=== PATIENT | female | born 1995 | race Two or more races ===

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

== ENCOUNTER 2019-03-16 16:12 | Emergency (ER) | payer OTHER ==
[2019-03-16 16:43] LABS: BASOPHILS % (AUTO) 0.2 %; EOSINOPHILS % (AUTO) 2.2 %; HGB - HEMOGLOBIN 14.4 g/dL (12.0-16.0); MEAN CORPUSCULAR HEMOGLOBIN 32.1 pg (27.0-31.0); MEAN CORPUSCULAR HGB CONC 35.1 g/dL (32.0-36.0); MEAN CORPUSCULAR VOLUME 91.5 fL (81.0-99.0); MEAN PLATELET VOLUME 10.3 fL (7.9-10.8); MONOCYTES % (AUTO) 8.4 %; NEUTROPHILS % (AUTO) 60.5 %; PLT - PLATELET COUNT 133 10^3/uL (130-450); RED BLOOD COUNT 4.48 10^6/uL (4.20-5.40); RED CELL DISTRIBUTION WIDTH 11.8 % (12.0-15.0)
[2019-03-16 16:46] LABS: ABNORMAL LYMPHS % (MANUAL) 0 %
[2019-03-16 16:48] LABS: ALBUMIN 4.8 g/dL (3.2-5.5); ALBUMIN/GLOBULIN RATIO 1.2 (1.0-2.2); BILIRUBIN,TOTAL 0.5 mg/dL (0.2-1.0); CALCIUM 9.2 mg/dL (8.5-10.3); CREATININE 0.5 mg/dL (0.4-1.0); TOTAL PROTEIN 8.9 g/dL (6.7-8.2)
[2019-03-16] MEDS ORDERED: KETOROLAC 30 MG/ML VIAL IVP STA (16:48)
[2019-03-16] MEDS ORDERED: ONDANSETRON 4 MG/2 ML VIAL IVP STA (16:48)
[2019-03-16] MEDS ORDERED: SODIUM CHLORIDE 0.9% 1,000 ML IV ONE (16:48)
--- NOTE | 2019-03-16 16:50 | ED Physician Documentation ---
PD HPI ABD PAIN - Stated complaint Stated Complaint: FLU SYMPTOMS - Chief complaint Chief Complaint: Abd Pain - History obtained from History obtained from: Patient (Previously healthy 23-year-old woman has been sick for 4 days with abdominal cramps, body wide pain, vomiting and diarrhea as well as chills and fever at home. Sent from an urgent care for concern for potential appendicitis.) Review of Systems Constitutional: reports: Fever, Chills Nose: reports: Rhinorrhea / runny nose Cardiac: denies: Palpitations Respiratory: denies: Cough GI: reports: Abdominal Pain, Nausea, Vomiting, Diarrhea PD PAST MEDICAL HISTORY - Past Medical History Cardiovascular: None Respiratory: None Endocrine/Autoimmune: None GI: None : None HEENT: None Psych: Depression Musculoskeletal: None Derm: None - Past Surgical History Past Surgical History: No - Present Medications Home Medications: Ambulatory Orders Medication Instructions Recorded Confirmed Moxifloxacin HCl 400 mg PO DAILY #6 tablet 02/24/16 Dicyclomine [Bentyl] 20 mg PO QID PRN #15 capsule 03/16/19 Loperamide [Imodium] 2 mg PO QID PRN #10 capsule 03/16/19 Ondansetron Odt [Zofran] 4 mg TL Q6H PRN #10 tablet 03/16/19 - Allergies Allergies/Adverse Reactions: Allergies Allergy/AdvReac Type Severity Reaction Status Date / Time No Known Drug Allergies Allergy Verified 03/16/19 16:20 - Social History Does the pt smoke?: No Smoking Status: Never smoker Does the pt drink ETOH?: No Does the pt have substance abuse?: No - Immunizations Immunizations are current?: Yes - POLST Patient has POLST: No PD ED PE NORMAL - Vitals Vital signs reviewed: Yes - General General: Alert and oriented X 3, No acute distress - HEENT HEENT: PERRL, Pharynx benign - Neck Neck: Supple, no meningeal sign, No bony TTP - Cardiac Cardiac: RRR, No murmur - Respiratory Respiratory: No respiratory distress, Clear bilaterally - Abdomen Abdomen: Normal bowel sounds, Soft, Non tender - Back Back: No CVA TTP, No spinal TTP - Derm Derm: Normal color, Warm and dry - Extremities Extremities: No edema, No calf tenderness / cord - Neuro Neuro: Alert and oriented X 3, Normal speech Results - Vitals Vitals: Vital Signs - 24 hr 03/16/19 03/16/19 16:18 18:31 Temperature 36.9 C Heart Rate 77 66 Respiratory 16 Rate Blood Pressure 124/77 113/69 O2 Saturation 99 100 Oxygen O2 Source Room air - Labs Labs: Laboratory Tests 03/16/19 03/16/19 03/16/19 16:31 16:31 17:17 WBC 6.0 RBC 4.48 Hgb 14.4 Hct 41.0 MCV 91.5 MCH 32.1 H MCHC 35.1 RDW 11.8 L Plt Count 133 MPV 10.3 Neut # (Auto) Not Reportable Lymph # (Auto) Not Reportable Rich # (Auto) Not Reportable Eos # (Auto) Not Reportable Baso # (Auto) Not Reportable Absolute Nucleated RBC Not Reportable Total Counted 100 Band Neuts % (Manual) 9 Reactive Lymphs % (Man) 3 Abnorm Lymph % (Manual) 0 Nucleated RBC % Not Reportable Neutrophils # (Manual) 3.8 Lymphocytes # (Manual) 1.8 Monocytes # (Manual) 0.4 Eosinophils # (Manual) 0.0 Basophils # (Manual) 0.0 Differential Comment MANUAL DIFFERENTIAL Platelet Estimate NORMAL (130-450,000) Platelet Morphology NORMAL APPEARANCE RBC Morph Micro Appear NORMAL APPEARANCE Sodium 133 L Potassium 3.5 Chloride 96 L Carbon Dioxide 23 Anion Gap 14.0 H BUN 12 Creatinine 0.5 Estimated GFR (MDRD) 156 Glucose 97 Calcium 9.2 Total Bilirubin 0.5 AST 40 ALT 25 Alkaline Phosphatase 77 Total Protein 8.9 H Albumin 4.8 Globulin 4.1 Albumin/Globulin Ratio 1.2 Lipase 50 Urine Color YELLOW Urine Clarity CLEAR Urine pH 6.5 Ur Specific [place] 1.020 Urine Protein 30 H Urine Glucose (UA) NEGATIVE Urine Ketones >=80 H Urine Occult Blood NEGATIVE Urine Nitrite NEGATIVE Urine Bilirubin NEGATIVE Urine Urobilinogen 1 (NORMAL) Ur Leukocyte Esterase NEGATIVE Urine RBC 0-5 Urine WBC 4-5 Ur Squamous Epith Cells MOD Squamous H Urine Bacteria Moderate H Urine Mucus Marked Strands Ur Microscopic Review INDICATED Urine Culture Comments NOT INDICATED Urine HCG, Qual 03/16/19 17:17 WBC RBC Hgb Hct MCV MCH MCHC RDW Plt Count MPV Neut # (Auto) Lymph # (Auto) Rich # (Auto) Eos # (Auto) Baso # (Auto) Absolute Nucleated RBC Total Counted Band Neuts % (Manual) Reactive Lymphs % (Man) Abnorm Lymph % (Manual) Nucleated RBC % Neutrophils # (Manual) Lymphocytes # (Manual) Monocytes # (Manual) Eosinophils # (Manual) Basophils # (Manual) Differential Comment Platelet Estimate Platelet Morphology RBC Morph Micro Appear Sodium Potassium Chloride Carbon Dioxide Anion Gap BUN Creatinine Estimated GFR (MDRD) Glucose Calcium Total Bilirubin AST ALT Alkaline Phosphatase Total Protein Albumin Globulin Albumin/Globulin Ratio Lipase Urine Color Urine Clarity Urine pH Ur Specific [place] 1.020 Urine Protein Urine Glucose (UA) Urine Ketones Urine Occult Blood Urine Nitrite Urine Bilirubin Urine Urobilinogen Ur Leukocyte Esterase Urine RBC Urine WBC Ur Squamous Epith Cells Urine Bacteria Urine Mucus Ur Microscopic Review Urine Culture Comments Urine HCG, Qual NEGATIVE PD MEDICAL DECISION MAKING - ED course ED course: This is a 23-year-old woman who presents with a flulike illness and gastroenteritis, some concern from the sending facility for appendicitis, however in my opinion this is clinically not likely given the lack of focal right lower quadrant pain or tenderness. Further corroborated by the white count of 6. On repeat evaluation after some IV Toradol, Zofran and fluids she felt much better, passed an oral challenge. Remained nontender on abd exam. Departure - Departure Disposition: 01 Home, Self Care Clinical Impression: Gastroenteritis Condition: Good Record reviewed to determine appropriate education?: Yes Instructions: ED Gastroenteritis Viral Prescriptions: Dicyclomine [Bentyl] 20 mg PO QID PRN #15 capsule PRN Reason: Abdominal Pain Loperamide [Imodium] 2 mg PO QID PRN #10 capsule PRN Reason: Diarrhea Ondansetron Odt [Zofran] 4 mg TL Q6H PRN #10 tablet PRN Reason: Nausea / Vomiting Comments: Suspect will be better in the next 24 hours, return in 24 hours if not or anytime if worse.
[2019-03-16 17:32] LABS: BAND NEUTROPHILS % (MANUAL) 9 %; LYMPHOCYTES # (MANUAL) 1.8 10^3/uL (1.5-3.5); LYMPHOCYTES % (MANUAL) 27 %; MONOCYTES # (MANUAL) 0.4 10^3/uL (0.0-1.0)
[2019-03-16 17:34] LABS: PLATELET ESTIMATE, MANUAL NORMAL (130-450,000) (NORMAL); PLATELET MORPHOLOGY NORMAL APPEARANCE (NORMAL); RBC MORPHOLOGY (MULTIPLE) NORMAL APPEARANCE (NORMAL)
[2019-03-16 17:35] LABS: DIFFERENTIAL COMMENT MANUAL DIFFERENTIAL
[2019-03-16 18:12] LABS: BILIRUBIN,URINE NEGATIVE (NEGATIVE); GLUCOSE, URINE (UA) NEGATIVE (NEGATIVE); KETONES,URINE (UA) >=80 mg/dL (NEGATIVE); LEUKOCYTE ESTERASE, URINE NEGATIVE (NEGATIVE); NITRITE,URINE NEGATIVE (NEGATIVE); OCCULT BLOOD,URINE NEGATIVE (NEGATIVE); PH,URINE 6.5 PH (5.0-7.5); PROTEIN,URINE 30 mg/dL (NEGATIVE); UROBILINOGEN,URINE 1 (NORMAL) E.U./dL (NORMAL)
[2019-03-16 18:13] LABS: CLARITY,URINE CLEAR (CLEAR); HCG UR QUAL NEGATIVE
[2019-03-16 18:21] LABS: BACTERIA,URINE Moderate /HPF (None Seen); MUCUS,URINE Marked Strands; RBC,URINE 0-5 /HPF (0-5); SQUAMOUS EPITHELIAL CELL,UR MOD Squamous (<= Few)
[2019-03-16 18:32] VITALS: BP 113/69
== END 2019-03-16 19:06 | disposition home or self-care (01) ==
LOC: ED 16:12
DX: K52.9 Noninfective gastroenteritis and colitis, unspecified (principal)
CPT/HCPCS: 36415; 80053; 81001; 81003; 81025; 83690; 85025; 87086; 96361; 96374; 99283

== ENCOUNTER 2019-12-24 19:53 | Emergency (ER) | payer OTHER ==
[2019-12-24 20:24] LABS: BASOPHILS % (AUTO) 0.5 %; EOSINOPHILS # (AUTO) 0.1 10^3/uL (0.0-0.7); EOSINOPHILS % (AUTO) 1.8 %; HGB - HEMOGLOBIN 12.9 g/dL (12.0-16.0); LYMPHOCYTES # (AUTO) 2.9 10^3/uL (1.5-3.5); LYMPHOCYTES % (AUTO) 51.7 %; MEAN CORPUSCULAR HEMOGLOBIN 33.2 pg (27.0-31.0); MEAN CORPUSCULAR HGB CONC 34.7 g/dL (32.0-36.0); MEAN CORPUSCULAR VOLUME 95.9 fL (81.0-99.0); MEAN PLATELET VOLUME 9.5 fL (7.9-10.8); MONOCYTES # (AUTO) 0.5 10^3/uL (0.0-1.0); MONOCYTES % (AUTO) 8.4 %; NEUTROPHILS # (AUTO) 2.1 10^3/uL (1.5-6.6); NEUTROPHILS % (AUTO) 37.4 %; PLT - PLATELET COUNT 215 10^3/uL (130-450); RED BLOOD COUNT 3.88 10^6/uL (4.20-5.40); RED CELL DISTRIBUTION WIDTH 11.6 % (12.0-15.0); WHITE BLOOD COUNT 5.6 x10^3/uL (4.8-10.8)
[2019-12-24 20:36] LABS: ALBUMIN 4.5 g/dL (3.2-5.5); ALBUMIN/GLOBULIN RATIO 1.4 (1.0-2.2); BILIRUBIN,TOTAL 0.8 mg/dL (0.2-1.0); CALCIUM 9.2 mg/dL (8.5-10.3); CREATININE 0.6 mg/dL (0.4-1.0); TOTAL PROTEIN 7.7 g/dL (6.7-8.2)
--- NOTE | 2019-12-24 22:05 | ED Physician Documentation ---
PD HPI FEMALE - Stated complaint Stated Complaint: F - Chief complaint Chief Complaint: Abd Pain - History obtained from History obtained from: Patient - History of Present Illness Timing - onset: Today Timing - duration: Days (1) Timing - details: Abrupt onset Pain level max: 5 Pain level max: 3 Associated symptoms: Pelvic pain (cramping), Vaginal bleeding Contributing factors: (states + preg test 2 days ago) [employer] OFFICER History: G (1), P (1) Recently seen: Not recently seen - Additional information Additional information: 24-year-old female presents to the emergency department stating she had heavy vaginal bleeding today. She states that she stopped her oral contraceptive pills approximately 1 month ago. She states she took a home test 2 days ago that was positive. Concerned about possible miscarriage. Review of Systems Constitutional: denies: Fever, Chills GI: denies: Vomiting, Diarrhea Skin: denies: Rash Musculoskeletal: denies: Neck pain, Back pain PD PAST MEDICAL HISTORY - Past Medical History Past Medical History: Yes Cardiovascular: None Respiratory: None Endocrine/Autoimmune: None GI: None : None HEENT: None Psych: Depression Musculoskeletal: None Derm: None - Past Surgical History Past Surgical History: No - Present Medications Home Medications: Ambulatory Orders Medication Instructions Recorded Confirmed Moxifloxacin HCl 400 mg PO DAILY #6 tablet 02/24/16 Dicyclomine [Bentyl] 20 mg PO QID PRN #15 capsule 03/16/19 Loperamide [Imodium] 2 mg PO QID PRN #10 capsule 03/16/19 Ondansetron Odt [Zofran] 4 mg TL Q6H PRN #10 tablet 03/16/19 - Allergies Allergies/Adverse Reactions: Allergies Allergy/AdvReac Type Severity Reaction Status Date / Time No Known Drug Allergies Allergy Verified 12/24/19 19:59 - Social History Does the pt smoke?: No Smoking Status: Never smoker Does the pt drink ETOH?: No Does the pt have substance abuse?: No - Immunizations Immunizations are current?: Yes - POLST Patient has POLST: No PD ED PE NORMAL - Vitals Vital signs reviewed: Yes - General General: Alert and oriented X 3, No acute distress, Well developed/nourished - HEENT HEENT: Moist mucous membranes - Neck Neck: Supple, no meningeal sign - Cardiac Cardiac: RRR, Strong equal pulses - Respiratory Respiratory: No respiratory distress, Clear bilaterally - Abdomen Abdomen: Soft, Non tender, Non distended - Female Female : Pt declined - Derm Derm: Warm and dry - Neuro Neuro: Alert and oriented X 3 - Psych Psych: Normal mood, Normal affect Results - Vitals Vitals: Vital Signs - 24 hr 12/24/19 12/24/19 19:59 22:05 Temperature 36.5 C Heart Rate 90 82 Respiratory 16 16 Rate Blood Pressure 126/70 129/70 O2 Saturation 100 98 Oxygen O2 Source Room air - Labs Labs: Laboratory Tests 12/24/19 12/24/19 12/24/19 20:15 20:15 20:15 WBC 5.6 RBC 3.88 L Hgb 12.9 Hct 37.2 MCV 95.9 MCH 33.2 H MCHC 34.7 RDW 11.6 L Plt Count 215 MPV 9.5 Neut # (Auto) 2.1 Lymph # (Auto) 2.9 [place] # (Auto) 0.5 Eos # (Auto) 0.1 Baso # (Auto) 0.0 Absolute Nucleated RBC 0.00 Nucleated RBC % 0.0 Sodium 135 Potassium 3.6 Chloride 102 Carbon Dioxide 26 Anion Gap 7.0 BUN 10 Creatinine 0.6 Estimated GFR (MDRD) 125 Glucose 95 Calcium 9.2 Total Bilirubin 0.8 AST 20 ALT 13 Alkaline Phosphatase 73 Total Protein 7.7 Albumin 4.5 Globulin 3.2 Albumin/Globulin Ratio 1.4 Lipase 26 HCG, Quant < 0.60 - Rads (name of study) Pelvic ultrasound Radiology: Prelim report reviewed, EMP read contemporaneously, See rad report (Normal) PD MEDICAL DECISION MAKING - ED course Complexity details: reviewed results, re-evaluated patient, considered differential, d/w patient ED course: 24-year-old female presents to the emergency department with what appears to be menorrhagia, likely secondary to with drawl from oral contraceptive pills. hCG is negative. Ultrasound is normal. Bleeding decreased. Declines a pelvic exam. She will follow-up with her doctor as needed for further care. Patient counseled regarding signs and symptoms for which I believe and urgent re-evalua tion would be necessary. Patient with good understanding of and agreement to plan and is comfortable going home at this time This document was made in part using voice recognition software. While efforts are made to proofread this document, sound alike and grammatical errors may occur. Departure - Departure Disposition: 01 Home, Self Care Clinical Impression: Menorrhagia Qualifiers: Menorrhagia type: with regular cycle Qualified Code(s): N92.0 - Excessive and frequent menstruation with regular cycle Condition: Good Instructions: ED Bleeding Menstrual Heavy Follow-Up: your,doctor as needed [Other] Comments: Your test is negative today. Your blood counts are normal. You may be having heavier bleeding due to withdrawal from your control as well. Follow-up with your doctor for further care. Return if you worsen. Your ultrasound is normal as well. Discharge Date/Time: 12/24/19 22:05
[2019-12-24 22:12] VITALS: BP 129/70
--- NOTE | 2019-12-25 08:37 | Ultrasound Report ---
PROCEDURE: Pelvic w/Transvag+Doppler Comp INDICATIONS: Pelvic pain, vaginal bleeding TECHNIQUE: Real-time scanning was performed of the pelvic organs, with image documentation. Additional endovagi nal scanning was necessary due to incomplete visualization of the adnexal and endometrial structures by transabdominal scanning. COMPARISON: None. FINDINGS: Transabdominal scanning: Limited scanning through the kidneys shows no hydronephrosis. Trace free fl uid in the cul-de-sac is within physiologic normal limits. Endovaginal scanning: The uterus measures 3.3 x 4.3 x 7.5 cm. No uterine mass identified. The endometrial stripe complex me asures 5 mm in maximum double layer thickness. Both ovaries are normal in size and appearance with normal and arterial and venous Doppler signal. IMPRESSION: Normal pelvic ultrasound. No significant change from preliminary report. Reviewed by: Keaton Harley MD on 12/25/2019 8:36 AM PST Approved by: Keaton Harley MD on 12/25/2019 8:36 AM PST Station ID: [id number]
== END 2019-12-24 22:05 | disposition home or self-care (01) ==
LOC: ED 19:53
DX: N92.0 Excessive and frequent menstruation with regular cycle (principal)
CPT/HCPCS: 36415; 76830; 76856; 80053; 83690; 84702; 85025; 93975; 99282; 99284

== ENCOUNTER 2020-07-14 10:00 | Outpatient (CLI) | payer OTHER | END 2020-07-14 23:59 | disposition home or self-care (01) | LOC: LAB.N 10:00 | PROVIDERS: ATTEND Family Medicine | DX: R39.9 Unspecified symptoms and signs involving the genitourinary system (principal) | CPT/HCPCS: 87086 ==

== ENCOUNTER 2022-09-08 02:59 | Emergency (ER) | payer BC, OTHER ==
[2022-09-08] MEDS ORDERED: SODIUM CHLORIDE 0.9% 1,000 ML IV STA ×2 (03:13→04:05)
[2022-09-08] MEDS ORDERED: KETOROLAC 30 MG/ML VIAL IVP STA (03:13)
[2022-09-08] MEDS ORDERED: ACETAMINOPHEN 325 MG TABLET PO STA (03:13)
[2022-09-08 03:24] LABS: BASOPHILS % (AUTO) 0.2 %; HCT - HEMATOCRIT 38.7 % (37.0-47.0); HGB - HEMOGLOBIN 13.4 g/dL (12.0-16.0); LYMPHOCYTES # (AUTO) 1.2 10^3/uL (1.5-3.5); LYMPHOCYTES % (AUTO) 6.2 %; MEAN CORPUSCULAR HGB CONC 34.6 g/dL (32.0-36.0); MEAN CORPUSCULAR VOLUME 95.3 fL (81.0-99.0); MEAN PLATELET VOLUME 9.9 fL (7.9-10.8); MONOCYTES # (AUTO) 1.1 10^3/uL (0.0-1.0); MONOCYTES % (AUTO) 5.6 %; NEUTROPHILS # (AUTO) 17.3 10^3/uL (1.5-6.6); NEUTROPHILS % (AUTO) 87.5 %; PLT - PLATELET COUNT 223 10^3/uL (130-450); RED BLOOD COUNT 4.06 10^6/uL (4.20-5.40); WHITE BLOOD COUNT 19.8 x10^3/uL (4.8-10.8)
--- NOTE | 2022-09-08 03:30 | ED Physician Documentation ---
History of Present Illness - Stated complaint Stated Complaint: L SIDE PX/TEMP/R FINGER NUMB - Chief complaint Chief Complaint: Abd Pain - History obtained from History obtained from: Patient - Additonal information Additional information: The patient comes to the emergency department chief complaint of pain under her left lateral rib cage for the last 2 days and fever that started yesterday. She states that she has not had a cough. She has been nauseated and vomiting for the same period of time as she has had the left-sided pain. No sore throat. No sick contacts. The patient denies any diarrhea or urinary symptoms. She has a history of OxyContin and cocaine abuse and states that she snorts the cocaine. She does not inject drugs, she states. She just got out of rehab for drug use and states she just used cocaine a couple of days ago. No other complaints at this time. PD PAST MEDICAL HISTORY - Past Medical History Cardiovascular: None Respiratory: None Endocrine/Autoimmune: None GI: None : None HEENT: None Psych: Depression Musculoskeletal: None Derm: None - Past Surgical History Past Surgical History: No - Present Medications Home Medications: Ambulatory Orders Medication Instructions Recorded Confirmed Moxifloxacin HCl 400 mg PO DAILY #6 tablet 02/24/16 Dicyclomine [Bentyl] 20 mg PO QID PRN #15 capsule 03/16/19 Loperamide [Imodium] 2 mg PO QID PRN #10 capsule 03/16/19 Ondansetron Odt [Zofran] 4 mg TL Q6H PRN #10 tablet 03/16/19 Ondansetron Odt [Zofran] 4 mg TL Q6H PRN #14 tablet 09/08/22 levoFLOXacin [Levaquin] 250 mg PO QD #10 tablet 09/08/22 - Allergies Allergies/Adverse Reactions: Allergies Allergy/AdvReac Type Severity Reaction Status Date / Time No Known Drug Allergies Allergy Verified 09/08/22 03:09 - Social History Does the pt smoke?: No Smoking Status: Never smoker Does the pt drink ETOH?: No Does the pt have substance abuse?: No - Immunizations Immunizations are current?: Yes - POLST Patient has POLST: No PD ED PE NORMAL - Vitals Vital signs reviewed: Yes - General General: Alert and oriented X 3, No acute distress, Well developed/nourished, Other (The patient appears somewhat uncomfortable but is nontoxic in appearance.) - HEENT HEENT: Atraumatic, PERRL, EOMI, Moist mucous membranes - Neck Neck: Supple, no meningeal sign - Cardiac Cardiac: RRR, No murmur, Strong equal pulses - Respiratory Respiratory: No respiratory distress, Clear bilaterally - Abdomen Abdomen: Soft, Non tender, Non distended - Derm Derm: Normal color, Warm and dry, No rash - Extremities Extremities: No deformity, No edema - Neuro Neuro: Alert and oriented X 3, 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, Normal speech - Psych Psych: Normal mood, Normal affect Results - Vitals Vitals: Vital Signs - 24 hr 09/08/22 09/08/22 09/08/22 03:06 04:27 05:36 Temperature 39.7 C H 37.2 C Heart Rate 100 79 Respiratory 16 16 Rate Blood Pressure 113/62 110/50 L O2 Saturation 98 100 Oxygen O2 Source Room air - Labs Labs: Laboratory Tests 09/08/22 09/08/22 09/08/22 03:16 03:16 03:16 WBC 19.8 H RBC 4.06 L Hgb 13.4 Hct 38.7 MCV 95.3 MCH 33.0 H MCHC 34.6 RDW 12.0 Plt Count 223 MPV 9.9 Neut # (Auto) 17.3 H Lymph # (Auto) 1.2 L [place] # (Auto) 1.1 H Eos # (Auto) 0.0 Baso # (Auto) 0.0 Absolute Nucleated RBC 0.00 Nucleated RBC % 0.0 Sodium 128 L Potassium 3.3 L Chloride 97 L Carbon Dioxide 23 Anion Gap 8.0 BUN 6 Creatinine 0.8 Estimated GFR (MDRD) 88 L Glucose 123 H Calcium 9.0 Total Bilirubin 0.7 AST 25 ALT 15 Alkaline Phosphatase 70 Total Protein 7.5 Albumin 4.0 Globulin 3.5 Albumin/Globulin Ratio 1.1 Lipase 21 Urine Color Urine Clarity Urine pH Ur Specific [place] Urine Protein Urine Glucose (UA) Urine Ketones Urine Occult Blood Urine Nitrite Urine Bilirubin Urine Urobilinogen Ur Leukocyte Esterase Urine RBC Urine WBC Ur Squamous Epith Cells Urine Bacteria Ur Microscopic Review Urine Culture Comments Urine HCG, Qual Nasal Adenovirus (PCR) NOT DETECTED Nasal B. parapertussis DNA (PCR) NOT DETECTED Nasal Coronavir 229E PCR NOT DETECTED Nasal Coronavir HKU1 PCR NOT DETECTED Nasal Coronavir NL63 PCR NOT DETECTED Nasal Coronavir OC43 PCR NOT DETECTED Nasal Enterovir/Rhinovir PCR NOT DETECTED Nasal Influenza B PCR NOT DETECTED Nasal Influenza A PCR NOT DETECTED Nasal Parainfluen 1 PCR NOT DETECTED Nasal Parainfluen 2 PCR NOT DETECTED Nasal Parainfluen 3 PCR NOT DETECTED Nasal Parainfluen 4 PCR NOT DETECTED Nasal RSV (PCR) NOT DETECTED Nasal B.pertussis DNA PCR NOT DETECTED Nasal C.pneumoniae (PCR) NOT DETECTED [place] Human Metapneumo PCR NOT DETECTED Nasal M.pneumoniae (PCR) NOT DETECTED Nasal SARS-CoV-2 (PCR) NOT DETECTED 09/08/22 09/08/22 04:35 04:35 WBC RBC Hgb Hct MCV MCH MCHC RDW Plt Count MPV Neut # (Auto) Lymph # (Auto) [place] # (Auto) Eos # (Auto) Baso # (Auto) Absolute Nucleated RBC Nucleated RBC % Sodium Potassium Chloride Carbon Dioxide Anion Gap BUN Creatinine Estimated GFR (MDRD) Glucose Calcium Total Bilirubin AST ALT Alkaline Phosphatase Total Protein Albumin Globulin Albumin/Globulin Ratio Lipase Urine Color YELLOW Urine Clarity CLEAR Urine pH 5.5 Ur Specific [place] <=1.005 Urine Protein NEGATIVE Urine Glucose (UA) NEGATIVE Urine Ketones 15 H Urine Occult Blood TRACE-INTA Urine Nitrite NEGATIVE Urine Bilirubin NEGATIVE Urine Urobilinogen 0.2 (NORMAL) Ur Leukocyte Esterase SMALL H Urine RBC 0-5 Urine WBC 11-25 H Ur Squamous Epith Cells FEW Squamous Urine Bacteria Few Ur Microscopic Review INDICATED Urine Culture Comments INDICATED Urine HCG, Qual NEGATIVE Nasal Adenovirus (PCR) Nasal B. parapertussis DNA (PCR) Nasal Coronavir 229E PCR Nasal Coronavir HKU1 PCR Nasal Coronavir NL63 PCR Nasal Coronavir OC43 PCR Nasal Enterovir/Rhinovir PCR Nasal Influenza B PCR Nasal Influenza A PCR Nasal Parainfluen 1 PCR Nasal Parainfluen 2 PCR Nasal Parainfluen 3 PCR Nasal Parainfluen 4 PCR Nasal RSV (PCR) Nasal B.pertussis DNA PCR Nasal C.pneumoniae (PCR) [place] Human Metapneumo PCR Nasal M.pneumoniae (PCR) Nasal SARS-CoV-2 (PCR) - Rads (name of study) CT angiogram chest Relevant Findings:: Final report received, See rad report CT abdomen pelvis IV contrast Relevant Findings:: Final report received, See rad report PD Medical Decision Making - ED course Complexity details: reviewed old records, reviewed results, re-evaluated patient, considered differential, d/w patient ED course: The patient was worked up with labs including CBC, ER abdominal panel, and blood cultures, as well as UA, test, respiratory PCR panel, and chest x- ray. She was treated with IV fluids, Tylenol, Zofran, and Toradol. The patient was feeling much better after fluids and the above medications. Her white blood cell count was found to be 19 and she was mildly hyponatremic and hypokalemic. Her urinalysis was positive for infection and respiratory PCR panel was negative. Chest x-ray was also negative. I was concerned that the urinalysis was not a strongly positive as I would expect for the height of the patient's fever, so I did order CTs of the chest abdomen and pelvis just to be sure there is nothing else going on. These were found to be unremarkable. The patient was started on Levaquin. I discussed with her that her blood cultures are still pending and that we will contact her if they come back positive. We have discussed the timeline for improvement in symptoms, and the usual indications for return. I have sent prescriptions for the patient's antibiotics, as well as for Zofran, to the [facility] pharmacy in [place] at the patient's request. Departure - Departure Disposition: 01 Home, Self Care Clinical Impression: Pyelonephritis Condition: Stable Instructions: ED Kidney Infec Female Prescriptions: levoFLOXacin [Levaquin] 250 mg PO QD #10 tablet Ondansetron Odt [Zofran] 4 mg TL Q6H PRN #14 tablet PRN Reason: Nausea / Vomiting Comments: You have had a very high fever in the emergency department today, but this has responded well to Tylenol and to Toradol, which is in the same family as ibuprofen. Extensive testing has been done to figure out why you have a fever, and you do have an infection of your urinary tract which is most likely spread up to your left kidney. You been started on antibiotics for this. Other tests that were done were blood work and a chest x-ray. Your chest x-ray is negative. Your blood work shows an elevated white blood cell count which is not surprising, given the kidney infection. Your viral panel is negative. Blood cultures are pending at this time and preliminary result will be back early tomorrow morning. It is very important that you do not miss any of the doses of your antibiotic, and as such, you should pick your antibiotics up today. The prescription has been electronically transmitted to the [facility] pharmacy in [place], your pharmacy of choice on record. Your next dose of the antibiotic will be due tomorrow morning. Please do not miss any doses, and finish the entire course of antibiotics as directed. If you feel like things are getting a lot worse, then please return to the emergency department. It is very important that you get help with your drug use. Please work with your primary doctor on getting help with this. If you have recurrence of fevers, you may take Tylenol 650 mg every 4 hours and ibuprofen 600 mg every 6 hours. These medications are unrelated and may be taken at the same time to control fever. Forms: PCP List Discharge Date/Time: 09/08/22 05:35
[2022-09-08] MEDS ORDERED: ONDANSETRON 4 MG/2 ML VIAL IVP STA (03:33)
[2022-09-08 03:42] LABS: ALBUMIN/GLOBULIN RATIO 1.1 (1.0-2.2); BILIRUBIN,TOTAL 0.7 mg/dL (0.2-1.0); CREATININE 0.8 mg/dL (0.6-1.3); POTASSIUM 3.3 mmol/L (3.5-4.5); TOTAL PROTEIN 7.5 g/dL (6.4-8.9)
[2022-09-08 04:14] LABS: CORONAVIRUS 229E-RESP PCR NOT DETECTED; CORONAVIRUS HKU1-RESP PCR NOT DETECTED; CORONAVIRUS NL63-RESP PCR NOT DETECTED; CORONAVIRUS OC43-RESP PCR NOT DETECTED; SARS-CoV-2 -RESP PCR PANEL NOT DETECTED
[2022-09-08 04:15] LABS: B. PARAPERTUSSIS- RESP PCR PAN NOT DETECTED; B. PERTUSSIS- RESP PCR PANEL NOT DETECTED; C. PNEUMONIAE- RESP PCR PANEL NOT DETECTED; HUMAN METAPNEUMOVIRUS NOT DETECTED; INFLUENZA A- RESP PCR PANEL NOT DETECTED; INFLUENZA B - RESP PCR PANEL NOT DETECTED; M. PNEUMONIAE- RESP PCR PANEL NOT DETECTED; PARAINFLUENZA VIRUS 1 NOT DETECTED; PARAINFLUENZA VIRUS 2 NOT DETECTED; PARAINFLUENZA VIRUS 3 NOT DETECTED; PARAINFLUENZA VIRUS 4 NOT DETECTED; RHINOVIRUS/ENTEROVIRUS NOT DETECTED; RSV- RESP PCR PANEL NOT DETECTED
[2022-09-08] MEDS ORDERED: iohexoL-300 100 ML VIAL ONE (04:22)
[2022-09-08 04:44] LABS: BILIRUBIN,URINE NEGATIVE (NEGATIVE); GLUCOSE, URINE (UA) NEGATIVE (NEGATIVE); KETONES,URINE (UA) 15 mg/dL (NEGATIVE); LEUKOCYTE ESTERASE, URINE SMALL (NEGATIVE); NITRITE,URINE NEGATIVE (NEGATIVE); OCCULT BLOOD,URINE TRACE-INTA (NEGATIVE); PH,URINE 5.5 PH (5.0-7.5); PROTEIN,URINE NEGATIVE (NEGATIVE); UROBILINOGEN,URINE 0.2 (NORMAL) E.U./dL (NORMAL)
[2022-09-08 04:45] LABS: CLARITY,URINE CLEAR (CLEAR)
[2022-09-08 04:46] LABS: HCG UR QUAL NEGATIVE
[2022-09-08 04:54] LABS: BACTERIA,URINE Few /HPF (None Seen); RBC,URINE 0-5 /HPF (0-5); SQUAMOUS EPITHELIAL CELL,UR FEW Squamous (<= Few)
[2022-09-08] MEDS ORDERED: levoFLOXacin 250 MG TABLET PO STA (04:58)
[2022-09-08] MEDS ORDERED: iohexoL-300 100 ML VIAL IVP ONE (05:08)
[2022-09-08 05:41] VITALS: BP 110/50
--- NOTE | 2022-09-08 08:10 | XRAY Report ---
PROCEDURE: Chest 1 View X-Ray INDICATIONS: chest pain TECHNIQUE: One view of the chest was acquired. COMPARISON: Chest radiographs 02/23/2016 FINDINGS: Surgical changes and devices: None. Lungs and pleura: No pleural effusions or pneumothorax. Lungs are clear. Mediastinum: Mediastinal contours appear normal. Heart size is normal. Bones and chest wall: No suspicious bony lesions. Overlying soft tissues appear unremarkable. IMPRESSION: No acute cardiopulmonary process. There is no significant discrepancy when compared with the preliminary overnight report. Reviewed by: Brian Antunez MD on 09/08/2022 8:09 AM PDT Approved by: Brian Antunez MD on 09/08/2022 8:09 AM PDT Station ID: [id number]
--- NOTE | 2022-09-08 08:22 | CT Report ---
PROCEDURE: ANGIO CHEST W/WO INDICATIONS: fever/L side pain CONTRAST: 100mL Omni 300 TECHNIQUE: After the administration of intravenous contrast, 2 mm axial images were acquired from the pulmonary apices to the posterior costophrenic angles during the arterial phase. In addition, 1 mm lung kernel and 5 mm soft tissue kernel reconstructions were performed. 3-dimensional coronal oblique maximum int ensity projection (MIP) reformats, 8 mm axial MIP, and 5 mm coronal and sagittal MPR reformats were t hen performed through the thorax. For radiation dose reduction, the following was used: automated exp osure control, adjustment of mA and/or kV according to patient size. COMPARISON: None. FINDINGS: Image quality: Suboptimal opacification of central pulmonary arteries. Large vessels: No filling defects within the opacified pulmonary arteries, accounting for motion and contrast timing. No evidence of acute aortic syndrome or aortic aneurysm. Lungs and pleura: No consolidation. No pleural effusions. No pneumothorax. No suspicious pulmonary n odules which require follow up. Mediastinum: Heart size is normal. No pericardial effusion. No large vessel abnormality. No mediastin al adenopathy by size criteria. Chest wall and lower neck: Thyroid is unremarkable. No axillary or supraclavicular adenopathy by size . Bones: No aggressive osseous abnormality. Upper Abdomen: Please see separate CT abdomen report for detail. IMPRESSION: 1. Suboptimal opacification of central pulmonary arteries. No definitive pulmonary emboli. 2. No acute cardiopulmonary process. No significant discrepancy with the preliminary interpretation. Reviewed by: Elizabeth Villalpando MD on 09/08/2022 8:20 AM PDT Approved by: Elizabeth Villalpando MD on 09/08/2022 8:20 AM PDT Station ID: [id number]
--- NOTE | 2022-09-08 08:26 | CT Report ---
PROCEDURE: ABDOMEN/PELVIS W INDICATIONS: fever/L side pain CONTRAST: 100mL Omni 300 TECHNIQUE: After the administration of IV contrast, 5 mm thick sections acquired from the diaphragms to the symp hysis. 5 mm thick coronal and sagittal reformats were acquired. For radiation dose reduction, the f ollowing was used: automated exposure control, adjustment of mA and/or kV according to patient size. COMPARISON: CT abdomen and pelvis with, 02/20/2015. FINDINGS: Image quality: Excellent. Lung bases and heart: Unremarkable. Liver: No solid mass. Gallbladder and biliary tree: No gallstones. No biliary dilation. Spleen: No splenomegaly. Pancreas: No pancreatic ductal dilation. Adrenals: No adrenal nodule. Kidneys and ureters: Striated nephrogram with patchy area of decreased enhancement in left kidney, co mpatible with pyelonephritis. Subtle ureteral enhancement bilaterally suggesting ureteritis. No hydronephrosis. No renal cystic lesion which requires follow up. No solid mass. Bowel and peritoneum: No bowel distension. No pathologic free fluid. Lymph nodes: No central or retroperitoneal adenopathy. Vessels: No infrarenal aortic aneurysm. PELVIS Reproductive organs: Unremarkable. Bladder: No abnormal wall thickening, accounting for underdistension. Pelvic lymph nodes: No pelvic adenopathy by size criteria. Bones: No aggressive osseous abnormality. Other: No significant ventral or inguinal hernia. IMPRESSION: 1. Left pyelonephritis. Findings are concordant with preliminary interpretation provided by [facility]. Reviewed by: Elizabeth Villalpando MD on 09/08/2022 8:24 AM PDT Approved by: Elizabeth Villalpando MD on 09/08/2022 8:24 AM PDT Station ID: [id number]
== END 2022-09-08 05:35 | disposition home or self-care (01) ==
LOC: ED 02:59
DX: N12 Tubulo-interstitial nephritis, not specified as acute or chronic (principal); Z20.822 Contact with and (suspected) exposure to COVID-19
CPT/HCPCS: 36415; 71045; 71275; 74177; 80053; 81001; 81025; 83690; 85025; 87040; 87077; 87086; 87181; 87633; 96374; 96375; 99283; 99284; A9270; Q9967; 81003